=== PATIENT | female | born 1975 | race Asian ===

== ENCOUNTER 2021-03-09 06:04 | Observation (INO) | payer BC ==
[2021-03-05 10:21] LABS: Basophils # (Auto) 0.1 K/mm3 (0.0-0.1); Basophils % (Auto) 0.8 % (0.0-1.8); Eosinophils # (Auto) 0.3 K/mm3 (0.0-0.4); Eosinophils % (Auto) 3.9 % (0.0-4.3); Hematocrit 38.2 % (30.3-42.9); Hemoglobin 13.1 gm/dl (10.1-14.3); Lymphocytes # (Auto) 2.1 K/mm3 (1.2-5.4); Lymphocytes % (Auto) 27.9 % (13.4-35.0); Mean Corpuscular HGB Conc 34 % (30-34); Mean Corpuscular Volume 86 fl (79-97); Monocytes # (Auto) 0.5 K/mm3 (0.0-0.8); Monocytes % (Auto) 6.8 % (0.0-7.3); Platelet Count 316 K/mm3 (140-440); Red Blood Count 4.42 M/mm3 (3.65-5.03); Red Cell Distribution Width 13.7 % (13.2-15.2)
--- NOTE | 2021-03-05 13:14 | Anesthesia Consultation ---
Anesthesia Consult and Med Hx Date of service: 03/05/21 - Airway Anesthetic Teeth Evaluation: Good, Bridges ROM Head & Neck: Adequate Mental/Hyoid Distance: Adequate Mallampati Class: Class I Intubation Access Assessment: Good - Pulmonary Exam CTA: Yes - Cardiac Exam Cardiac Exam: RRR - Pre-Operative Health Status ASA Pre-Surgery Classification: ASA2 Proposed Anesthetic Plan: General Nerve Block: TAP - Pulmonary Hx Smoking: No Hx Respiratory Symptoms: No (COVID 04/2020; symptoms completely resolved) - Cardiovascular System Hx Hypertension: No - Central Nervous System CVA: No Hx Psychiatric Problems: No - Gastrointestinal Hx Gastroesophageal Reflux Disease: Yes (diet related) - Endocrine Hx Renal Disease: No Hx Liver Disease: No Hx Non-Insulin Dependent Diabetes: Yes (pre-DM) Hx Thyroid Disease: No - Additional Comments Anesthesia Medical History Comments: No hx anesthetic complications.
--- NOTE | 2021-03-08 19:41 | History and Physical Report ---
History of Present Illness Date of examination: 03/03/21 Chief complaint: Menorrhagia, fibroids and pelvic pain History of present illness: Menstrual History: LMP (date): 02/09/2021 LMP - Character: heavy LMP - Reliable: Yes Menarche: 11 Menses interval: 28 days Menstrual flow: 5 days On BCP's at conception: no Current Method of Contraception: Abstinence Past History : 2 Term Births: 1 Living Children: 1 Spont. 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 Zaldivar Allergies-seasonal Abnormal pap Past Surgical History: Reviewed history from 09/04/2020 and no changes required: Colon polypectomy (2014) LEEP (2018) Family History Summary: Reviewed history Last on 09/04/2020 and no changes required:03/08/2021 Father - Has Family History of Prostate Cancer - Entered On: 09/04/2020 Father - Has Family History of Kidney/Urinary Tract Cancer - bladder - Entered On: 08/16/2019 Other Family Member - Has No Family History of Uterine Cancer - Entered On: 02/10/2017 Other Family Member - Has No Family History of Small Bowel Cancer - Entered On: 02/10/2017 Other Family Member - Has No Family History of Stomach Cancer - Entered On: 02/10/2017 Other Family Member - Has No Family History of Pancreatic Cancer - Entered On: 02/10/2017 Other Family Member - Has No Family History of Ovarvian Cancer - Entered On: Other Family Member - Has No Family History of DVT/PE on OCP - Entered On: 02/10/2017 Other Family Member - Has No Family History of Colon Cancer - Entered On: 02/10/2017 Other Family Member - Has No Family History of Brain Cancer - Entered On: 02/10/2017 Other Family Member - Has No Family History of Breast Cancer - Entered On: 02/10/2017 Other Family Member - Has No Family History of Biliary Tract Cancer - Entered On: 02/10/2017 General Comments - FH: No Family History of Breast Cancer No Family History of Colon Cancer No Family History of Ovarvian Cancer No Family History of DVT/PE on OCP Social History: Reviewed history from 12/16/2016 and no changes required: Patient is single Smoking History: Patient has never smoked. Risk Factors: Smoked Tobacco Use: Never smoker Smokeless Tobacco Use: Never Passive smoke exposure: no Drug use: no HIV high-risk behavior: no Alcohol use: no Exercise: yes Times per week: 4-5 Type of Exercise: cardio Seatbelt use: 100 % Mammogram History: Date of Last Mammogram: 01/13/2021 Results: Normal per patient PAP Smear History: Date of Last PAP Smear: 09/07/2020 Results: Normal Impression & Recommendations: Problem # 1: Excessive and frequent menstruation with regular cycle (ICD-626.2) (BCB10-J72.0) Diagnosis explained to patient . Discussed with patient various medical, surgical and radiological therapies common for treatment including, but not limited to, myomectomy, hysterectomy and uterine artery embolization. Discussed risks and benefits of laparotomy, laparoscopy, vaginal and robotic assisted approaches for hysterectomies. Patient desires definitive treatment in the form of robot assisted laparoscopic total hysterectomy. The risks and alternatives for this surgery were reviewed with the patient. She was informed of the risks of the surgery including, but not limited to, pain, infection, bleeding possibly heavy enough to require a blood transfusion with associated risks of infections (hepatitis and HIV) and transfusion reactions, possible damage to bowel, bladder or ureter(s) and surrounding organs. . Patient understands that this surgery will make her sterile. Indications to abort a robotic/laparoscopic procedure and perform an open procedure were explained. Patient understands if her ovaries are removed she will become menopausal. She desires ovarian conservation. She was informed she may require surgery later to have her ovaries removed for a benign or mailgnant condition Patient advised the small risks of spreading of malignancy if morcellation is required during the surgery patient understands and approves performing if necessary. Questions answered. Consent reviewed and signed The patient was instructed/informed the following: The normal length of hospital stay for this procedure. Nothing to eat or drink after midnight the evening prior to surgery. Clear liquids the day before surgery. Pre-op instruction sheets given. Wound care instructions given. Problem # 2: Fibroids, uterus (ICD-218.9) (SCE92-E28.9) Problem # 3: Pelvic and perineal pain (ICD-789.00) (PAQ86-B42.2) It was extensively explained to her that her pain may persist, recur or change in nature due to the difficulty with diagnosis chronic pelvic pain or development of adhesions. She declined other treatment options at this time The following medications were removed from the medication list: 11/25 1-20 Mg-mcg Oral Tablet (Norethin vonnie-eth estrad-fe) ..... 1 tab po qday ] Medications and Allergies Allergies Allergy/AdvReac Type Severity Reaction Status Date / Time No Known Allergies Allergy Unverified 03/03/21 15:06 Home Medications Medication Instructions Recorded Confirmed Last Taken Type No Known Home Medications [No 03/03/21 03/03/21 Unknown History Reported Home Medications] Active Meds: Active Medications Acetaminophen (Acetaminophen 500 Mg Tab) 1,000 mg PO PREOP LIBRADO Stop: 03/09/21 20:00 Celecoxib (Celecoxib 200 Mg Cap) 200 mg PO PREOP NR Stop: 03/09/21 22:00 Fentanyl (Fentanyl 100 Mcg/2 Ml Inj) 100 mcg IV ONCE PRN PRN Reason: sedation for nerve block Stop: 03/09/21 22:00 Gabapentin (Gabapentin 300 Mg Cap) 300 mg PO PREOP NR Stop: 03/09/21 22:00 Lactated Ringer's (Lactated Ringers) 1,000 mls @ 100 mls/hr IV DIRECT LIBRADO Stop: 03/09/21 23:59 Midazolam HCl (Midazolam 2 Mg/2 Ml Inj) 2 mg IV PREOP NR Stop: 03/09/21 23:00 Scopolamine (Scopolamine Transdermal Patch 72 Hr) 1 each TD PREOP NR Stop: 03/09/21 23:00 Exam Vital Signs Temp Pulse Resp BP Pulse Ox 98.1 F 67 16 123/61 97 03/05/21 09:15 03/05/21 09:15 03/05/21 09:15 03/05/21 09:15 03/05/21 09:15 - General physical appearance Positive: well developed, well nourished, no distress - Respiratory Positive: normal expansion, normal respiratory effort dullness: bilateral - Cardiovascular Rhythm: regular - Genitourinary Female Genitourinary: deferred (for EUA) Results - Labs 03/05/21 09:30 Assessment and Plan - Patient Problems (1) Excessive and frequent menstruation with regular cycle Status: Acute (2) Leiomyoma of uterus, unspecified Status: Acute (3) Pelvic and perineal pain Status: Acute
[~2021-03-09 06:04] MED LIST: ACETAMINOPHEN 500 MG TAB PO SCH; CELECOXIB 200 MG CAP PO NR; GABAPENTIN 300 MG CAP PO NR; LACTATED RINGERS 1,000 ML IV SCH; SCOPOLAMINE TRANSDERMAL PATCH 72 HR TD NR; ceFAZolin/Water 2 GM/20 ML 2 GM/20 ML SYRINGE IV NR; fentaNYL 100 MCG/2 ML INJ IV PRN
[2021-03-09] MEDS: MIDAZOLAM 2 MG/2 ML INJ IV NR ×2 (06:40→07:07)
[2021-03-09] MEDS ORDERED: dexAMETHasone 4 MG/ML VIAL ONE (07:03)
[2021-03-09] MEDS ORDERED: BUPIVACAINE/PF (0.25%) 2.5 MG/ML 30 ML VIAL INFILTRATI ONE (07:03)
[2021-03-09] MEDS ORDERED: HYDROmorphone 1 MG/1 ML INJ ONE (07:12)
[2021-03-09] MEDS ORDERED: LIDOCAINE MPF (2%) 20 MG/1 ML VIAL 5 ML ONE (07:13)
[2021-03-09] MEDS ORDERED: propofoL 200 MG/20 ML VIAL IV ONE (07:13)
[2021-03-09] MEDS ORDERED: ROCURONIUM 50 MG/5 ML INJ IV ONE (07:14)
[2021-03-09] MEDS ORDERED: HYDROmorphone 1 MG/1 ML INJ IV PRN ×2 (07:25)
[2021-03-09] MEDS ORDERED: ONDANSETRON 4 MG/2 ML INJ IV PRN (07:25)
[2021-03-09] MEDS ORDERED: NEOMY 40 MG/POLYMYXIN B 200,000 UNITS/ML (GU) AMPULE IR ONE ×2 (07:26→08:15)
--- NOTE | 2021-03-09 07:26 | Anesthesia Day of Surgery ---
Anesthesia Day of Surgery - Day of Surgery Patient Examined: Yes Patient H&P Reviewed: Yes Patient is NPO: Yes
[2021-03-09] MEDS ORDERED: THROMBIN (RECOMBINANT) 5,000 UNIT VIAL TP ONE (08:00)
[2021-03-09] MEDS ORDERED: CALCIUM CHLORIDE 1,000 MG/10 ML SYRINGE IV ONE (08:00)
[2021-03-09] MEDS ORDERED: SODIUM CHLORIDE 0.9% IRRIG SOLN 2000 ML IR ONE (08:16)
[2021-03-09] MEDS ORDERED: GLYCOPYRROLATE 0.4 MG/2 ML INJ ONE (09:31)
[2021-03-09] MEDS ORDERED: NEOSTIGMINE 10MG/10 ML INJ MDV ONE (09:31)
[2021-03-09] MEDS ORDERED: ONDANSETRON 4 MG/2 ML INJ ONE (09:33)
[2021-03-09] MEDS ORDERED: KETOROLAC 30 MG/1 ML INJ ONE (09:33)
--- NOTE | 2021-03-09 10:25 | Operative Report ---
Operative Report Operative Report: Date: 03/09/2021 Preoperative diagnosis: 1. Menorrhagia unresponsive to medical therapy and declines conservative surgical therapy 2. Pelvic pain unresponsive to medical therapy 3. Body mass index of 30.7 kg/m 4. Uterine fibroids Postoperative diagnosis: 1. Menorrhagia unresponsive to medical therapy and declines conservative surgical therapy 2. Pelvic pain unresponsive to medical therapy 3. Body mass index of 30.7 kg/m 4. Uterine fibroids 5. Pelvic adhesions Procedure: 1. Robotic-assisted laparoscopic total hysterectomy with bilateral salpingectomy 2. Lysis of pelvic adhesions Surgeon: Cherise Florian MD [employer] Supervisor: Varsha Menjivar CSA Anesthesiologist: Dr. Monae Anesthesia: General endotracheal anesthesia EBL: Approximately 100 mL Findings: EUA: Uterus palpated to approximately 14 weeks. Uterus was sounded to 11 cm. Grossly normal tubes and ovaries. There were adhesions of the left ovary to the ampullary section of the left fallopian tube. There were also adhesions of bowel involving the left round ligament. Procedure: Patient was taken to the OR and placed in the supine position. General anesthesia was induced and an oral gastric tube was placed. Her neck and head were placed on foam support. Foam eye protection with goggles were secured in place. Then foam face protection was placed and secured. Foam shoulder pads were then positioned on her shoulders for Trendelenburg positioning. She was then placed in dorsolithotomy position. Exam under anesthesia as above. The abdomen and vagina were then prepped and draped in the usual sterile fashion. Timeout was performed. A Jackson catheter was inserted into the bladder with drainage of clear yellow urine. The operative speculum was introduced into the vagina and the anterior lip of the cervix was grasped with single-toothed tenaculum. The uterus was sounded to 11 cm. The cervix was progressively dilated to allow the large V care uterine manipulator. The bulb of the manipulator was inflated and the speculum and tenaculum were removed. The cup of the manipulator was placed around the cervix and the blue occluder of the manipulator was properly positioned in the vagina and secured. A laparotomy sponge that was saturated with a solution of polymyxin and saline was placed in the vagina to ensure pneumoperitoneum. Sterile gloves were placed and attention was turned to the abdomen. A 10 mm midline vertical supraumbilical incision was made approximately 10 cm superior to the elevated fundus of the uterus. A 10-12 mm trocar with the laparoscope and camera attached was introduced through this incision under direct visualization. The abdomen was insufflated. No obvious bowel, bladder, ureteral, or major vascular injury was noted. The patient was then placed in steep Trendelenburg position and the following trochars were placed under direct visualization: 8 mm robotic trochars were placed through incisions made in the bilateral midclavicular lower abdominal region approximately 10 cm lateral to the midline incision, and a 5 mm trocar was placed through an incision made in the right lower lateral pelvis. The 10 mm laparoscope was then replaced by a 5 mm laparoscope that was placed through the 5 millimeter lateral trocar. The 12 mm trocar was then removed and the Arsenio De La Cruz fascial closure device was placed through the incision and a 0 Vicryl was placed through the fascia. Once the suture was secured the 12 mm trocar was reintroduced. Once the trochars were in the appropriate positions, the da Bianca robot system was engaged. The EndoShears and bipolar device was placed through the 8 mm trochars and positioned then attention was turned to the console. The above findings were noted. Adhesions were released from the left adnexa. Hemostasis was noted. The uterus was elevated and bilateral salpingectomy was performed in the usual fashion. Each tube was removed through the 5 mm trocar and sent to pathology in separate containers. Then the utero-ovarian ligaments were clamped. cauterized and incised bilaterally using 30 W of energy. Then the round ligaments were clamped, cauterized and incised bilaterally. The anterior leaf of the broad ligament was elevated and with careful blunt and sharp dissection the bladder flap was created and dissected away from the lower uterine segment and cervix. The posterior leaf of the broad ligament was dissected away from the uterine vessels. The cup of the uterine manipulator was palpated both anteriorly and posteriorly. The bladder was further dissected away from the lower uterine segment. The uterine vessels were then clamped and cauterized bilaterally. Blanching of the uterus was then noted. Attention was again turned to the anterior lower uterine segment and the bladder was confirmed to be away from the operative field. Then attention was turned again to the posterior where the cup of the manipulator was palpated and a colpotomy was performed down to the cup. The incision was extended in the lateral position to the uterine vessels that were again clamped and cauterized and incised. Continuing along the cup of the manipulator in a circumferential manner the colpotomy was completed. The uterus and cervix were then removed through the vaginal incision. The pelvis was irrigated with warm normal saline. A moist laparotomy sponge was placed in the vagina to maintain pneumoperitoneum. The vagina cuff was reapproximated using V LOC 180 suture. Then a J stitch was performed to secure the suture. Again the pelvis was copiously irrigated with polymixin in warm normal saline. The laparotomy sponge was removed from the vagina. No obvious evidence of bowel, bladder, ureteral, or major vascular injury was noted. Once hemostasis was noted, platelet rich plasma was applied to the operative field to ensure hemostasis. Platelet poor plasma was applied to decrease formation of adhesions. Then the instruments were removed, the robot was disengaged. The 12 mm trocar was removed and the fascia was ligated with the 0 Vicryl suture that was placed at the beginning of the procedure. The patient was taken out of Trendelenburg position, the abdomen was desufflated, the remaining trochars were removed. I ncisions were reapproximated using 4-0 Monocryl in a subcuticular manner. Surgiseal was placed over the other incisions. The vagina was then inspected, the cuff was palpated to be intact and no bleeding was noted and clear yellow urine was draining into the Jackson bag from the bladder at the end of the procedure. Counts were correct 3. Patient was taken to recovery room in stable condition.
[2021-03-09] MEDS ORDERED: METOCLOPRAMIDE 10 MG/2 ML INJ IV PRN (11:20)
[2021-03-09] MEDS ORDERED: MORPHINE 2 MG/1 ML INJ IV PRN (11:20)
[2021-03-09] MEDS ORDERED: MORPHINE 4 MG/1 ML INJ IV PRN (11:20)
[2021-03-09] MEDS ORDERED: LACTATED RINGERS 1,000 ML IV SCH (11:20)
[2021-03-09] MEDS ORDERED: HYDROcodone/ACETAMINOPHEN 5-325 MG TAB PO PRN (11:30)
[2021-03-09] MEDS ORDERED: ACETAMINOPHEN 325 MG TAB PO SCH (12:30)
[2021-03-09] MEDS ORDERED: ACETAMINOPHEN 500 MG TAB PO PRN (14:47)
--- NOTE | 2021-03-09 15:11 | Post Anesthesia Evaluation ---
- Post Anesthesia Evaluation Patient Participated: Yes Airway Patent: Yes Stable Respiratory Function: Yes Nausea/Vomiting: No Temp > 96.8F: Yes Pain Manageable: Yes Adequeate Hydration: Yes Anesthesia Complications: No Block Receding Appropriately: Yes Patient on Ventilator: No
[2021-03-09] MEDS: ceFAZolin/NS 1 GM/50 ML 1 GM/50 ML BAG IV SCH ×2 (16:23→23:02)
[2021-03-09] MEDS: KETOROLAC 30 MG/1 ML INJ IV SCH ×2 (16:40→23:02)
--- NOTE | 2021-03-09 19:15 | Progress Note ---
Assessment and Plan - Patient Problems (1) History of robot-assisted laparoscopic hysterectomy Current Visit: Yes Status: Acute Plan to address problem: Patient resting in bed with her mother present. Pain management explained. Operative findings, procedures and plan of care reviewed. Questions encouraged and answered, she voiced understanding and agrees with plans. (2) Excessive and frequent menstruation with regular cycle Current Visit: No Status: Resolved (3) Leiomyoma of uterus, unspecified Current Visit: No Status: Resolved (4) Pelvic and perineal pain Current Visit: No Status: Resolved Subjective - Subjective Date of service: 03/09/21 Principal diagnosis: DOS S/P SOCO, BS, YESSENIA Interval history: Menstrual History: LMP (date): 02/09/2021 LMP - Character: heavy LMP - Reliable: Yes Menarche: 11 Menses interval: 28 days Menstrual flow: 5 days On BCP's at conception: no Current Method of Contraception: Abstinence Past History : 2 Term Births: 1 Living Children: 1 Spont. 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 Zaldivar Allergies-seasonal Abnormal pap Past Surgical History: Reviewed history from 09/04/2020 and no changes required: Colon polypectomy (2014) LEEP (2018) Family History Summary: Reviewed history Last on 09/04/2020 and no changes required:03/08/2021 Father - Has Family History of Prostate Cancer - Entered On: 09/04/2020 Father - Has Family History of Kidney/Urinary Tract Cancer - bladder - Entered O n: 08/16/2019 Other Family Member - Has No Family History of Uterine Cancer - Entered On: 02/10/2017 Other Family Member - Has No Family History of Small Bowel Cancer - Entered On: 02/10/2017 Other Family Member - Has No Family History of Stomach Cancer - Entered On: 02/10/2017 Other Family Member - Has No Family History of Pancreatic Cancer - Entered On: 02/10/2017 Other Family Member - Has No Family History of Ovarvian Cancer - Entered On: 02/10/2017 Other Family Member - Has No Family History of DVT/PE on OCP - Entered On: 02/10/2017 Other Family Member - Has No Family History of Colon Cancer - Entered On: 02/10/2017 Other Family Member - Has No Family History of Brain Cancer - Entered On: 02/10/2017 Other Family Member - Has No Family History of Breast Cancer - Entered On: 02/10/2017 Other Family Member - Has No Family History of Biliary Tract Cancer - Entered On: 02/10/2017 General Comments - FH: No Family History of Breast Cancer No Family History of Colon Cancer No Family History of Ovarvian Cancer No Family History of DVT/PE on OCP Social History: Reviewed history from 12/16/2016 and no changes required: Patient is single Smoking History: Patient has never smoked. Risk Factors: Smoked Tobacco Use: Never smoker Smokeless Tobacco Use: Never Passive smoke exposure: no Drug use: no HIV high-risk behavior: no Alcohol use: no Exercise: yes Times per week: 4-5 Type of Exercise: cardio Seatbelt use: 100 % Mammogram History: Date of Last Mammogram: 01/13/2021 Results: Normal per patient PAP Smear History: Date of Last PAP Smear: 09/07/2020 Results: Normal Impression & Recommendations: Problem # 1: Excessive and frequent menstruation with regular cycle (ICD-626.2) ([id number]-C00.0) Diagnosis explained to patient . Discussed with patient various medical, surgical and radiological therapies common for treatment including, but not limited to, myomectomy, hysterectomy and uterine artery embolization. Discussed risks and benefits of laparotomy, laparoscopy, vaginal and robotic assisted approaches for hysterectomies. Patient desires definitive treatment in the form of robot assisted laparoscopic total hysterectomy. The risks and alternatives for this surgery were reviewed with the patient. She was informed of the risks of the surgery including, but not limited to, pain, infection, bleeding possibly heavy enough to require a blood transfusion with associated risks of infections (hepatitis and HIV) and transfusion reactions, possible damage to bowel, bladder or ureter(s) and surrounding organs. . Patient understands that this surgery will make her sterile. Indications to abort a robotic/laparoscopic procedure and perform an open procedure were explained. Patient understands if her ovaries are removed she will become menopausal. She desires ovarian conservation. She was informed she may require surgery later to have her ovaries removed for a benign or mailgnant condition Patient advised the small risks of spreading of malignancy if morcellation is required during the surgery patient understands and approves performing if necessary. Questions answered. Consent reviewed and signed The patient was instructed/informed the following: The normal length of hospital stay for this procedure. Nothing to eat or drink after midnight the evening prior to surgery. Clear liquids the day before surgery. Pre-op instruction sheets given. Wound care instructions given. Problem # 2: Fibroids, uterus (ICD-218.9) (TZY60-E23.9) Problem # 3: Pelvic and perineal pain (ICD-789.00) (GXZ77-A65.2) It was extensively explained to her that her pain may persist, recur or change in nature due to the difficulty with diagnosis chronic pelvic pain or development of adhesions. She declined other treatment options at this time The following medications were removed from the medication list: 11/25 1-20 Mg-mcg Oral Tablet (Norethin vonnie-eth estrad-fe) ..... 1 tab po qday ] Objective - Vital Signs Latest vital signs: Vital Signs Temp Pulse Resp BP BP Pulse Ox 03/09/21 16:54 97.9 F 83 18 105/72 96 03/09/21 11:10 98.3 F 75 18 132/73 98 03/09/21 10:26 98.1 F 79 18 129/73 100 03/09/21 10:11 78 17 125/63 100 03/09/21 10:06 79 18 127/64 100 03/09/21 10:01 79 20 129/64 100 03/09/21 09:59 99.0 F 82 16 128/71 96 03/09/21 09:56 97.2 F L 78 16 114/60 99 03/09/21 07:38 16 03/09/21 07:25 82 14 128/71 96 03/09/21 07:20 88 15 124/74 96 03/09/21 07:15 85 15 138/71 96 03/09/21 07:10 86 13 128/74 96 03/09/21 07:07 18 03/09/21 07:05 85 18 136/78 100 03/09/21 06:30 99.0 F 87 18 138/81 97 Intake and Output 03/09/21 03/09/21 03/09/21 06:59 14:59 22:59 Intake Total 300 100 Output Total 200 Balance 300 -100 Intake: IV 300 100 Output: Urine 200 Other: Voiding Method Indwelling Catheter - Exam Breasts: Present: deferred Cardiovascular: Present: Regular rate Lungs: Present: Clear to auscultation, Normal air movement Abdomen: Present: soft, normal bowel sounds Extremities: Present: normal
[2021-03-09] MEDS: FAMOTIDINE 20 MG/2 ML INJ IV SCH (22:01)
[2021-03-09] MEDS: ACETAMINOPHEN 500 MG TAB PO SCH (22:01)
[2021-03-10] MEDS: ACETAMINOPHEN 500 MG TAB PO SCH ×2 (03:11→08:38)
[2021-03-10] MEDS: KETOROLAC 30 MG/1 ML INJ IV SCH ×2 (04:37→10:07)
[2021-03-10 04:38] LABS: Hematocrit 34.5 % (30.3-42.9); Hemoglobin 11.4 gm/dl (10.1-14.3)
--- NOTE | 2021-03-10 10:01 | Discharge Summary ---
Providers - Providers Date of Admission: 03/09/21 10:30 Date of discharge: 03/10/21 Attending physician: SHERRI BARKER Primary care physician: JESSE MARTINEZ Hospitalization Condition: Good Procedures: s/p RALTH, with bilateral salpingectomy, YESSENIA Hospital course: Normal Disposition: - TO HOME OR SELFCARE Final Discharge Diagnosis (Prints w/discharge instructions): RALTH, BS, YESSENIA - Discharge Diagnoses (1) History of robot-assisted laparoscopic hysterectomy Status: Acute (2) Excessive and frequent menstruation with regular cycle Status: Resolved (3) Leiomyoma of uterus, unspecified Status: Resolved (4) Pelvic and perineal pain Status: Resolved Core Measure Documentation - Palliative Care Palliative Care/ Comfort Measures: Not Applicable - Core Measures Any of the following diagnoses?: none Exam - Constitutional Vitals: Temp Pulse Resp BP Pulse Ox 98.2 F 63 18 122/66 96 03/10/21 07:57 03/10/21 07:57 03/10/21 07:57 03/10/21 07:57 03/10/21 07:57 General appearance: Present: no acute distress - Neck Neck: Present: supple - Respiratory Respiratory effort: normal Respiratory: bilateral: CTA - Cardiovascular Rhythm: regular - Extremities Extremities: no ischemia, No edema (NT) - Abdominal General gastrointestinal: Present: soft, non-tender, non-distended, normal bowel sounds - Integumentary Integumentary: Present: clear, warm, dry (Incisions: C/D/I) - Psychiatric Psychiatric: appropriate mood/affect, intact judgment & insight, memory intact, cooperative Plan Activity: other (No sex [id number]. Ambulate ~1mile on your property a day. Void and use your incentive spirometer every hour while awake.) Weight Bearing Status: Full Weight Bearing Diet: regular (Avoid spicy, hig salt and fatty foods. Eat small meals frequently thru out the day. Drink ~90oz water a day) Wound: open to air, keep clean and dry Special Instructions: no heavy lifting (Greater than 25lbs) Follow up with: JESSE MARTINEZ MD [Primary Care Provider] - 7 Days SHERRI BARKER MD [Staff Physician] - (As scheduled) Prescriptions: Ibuprofen [Motrin 800 MG tab] 800 mg PO Q8H PRN #30 tablet PRN Reason: Pain, Mild (1-3)
[2021-03-10] MEDS: FAMOTIDINE 20 MG/2 ML INJ IV SCH (10:08)
[2021-03-10] MEDS ORDERED: IBUPROFEN 800 MG TAB PO PRN (10:30)
[2021-03-10] MEDS ORDERED: oxyCODONE /ACETAMINOPHEN 5-325MG TAB PO PRN (10:30)
[2021-03-10 13:34] VITALS: BP 123/62
== END 2021-03-10 14:40 | disposition home or self-care (01) ==
LOC: OR 06:04 → OB 10:30
PROVIDERS: ADMIT Obstetrics & Gynecology; ATTEND Obstetrics & Gynecology
DX: N92.0 Excessive and frequent menstruation with regular cycle (principal); Z20.822 Contact with and (suspected) exposure to COVID-19; D25.9 Leiomyoma of uterus, unspecified; R10.2 Pelvic and perineal pain; Z90.710 Acquired absence of both cervix and uterus; Z79.899 Other long term (current) drug therapy; Z98.890 Other specified postprocedural states
CPT/HCPCS: 36415; 58573; 64450; 81025; 82962; 85014; 85018; 85025; 86850; 86900; 86901; 88302; 88307; 96365; 96366; 96375; 96376; A4217; G0378; J0690; J1100; J1170; J1885; J2250; J2270; J2405; J2704; J2710; J3010; J7120; S2900; U0003